=== PATIENT | male | born 1980 | race Caucasian/White ===

== ENCOUNTER 2016-09-28 09:18 | Inpatient (IN) | payer SELFPAY ==
[~2016-09-28] VITALS: Ht 182.9 cm; Wt 91.5 kg
[~2016-09-28 09:18] MED LIST: PRAVASTATIN SOD40 MG PO; ULTRAM50 MG PO; ZOFRAN ODT4 MG PO
[2016-09-28 10:29] LABS: EOSINOPHIL (%) 0.6 % (0-5); EOSINOPHIL COUNT 0.1 K/uL (0-0.3); IMMATURE GRANULOCYTE (%) 0.4 % (0.0-0.7); INSTRUMENT ABS NEUTROPHIL CT 5.3 K/uL; LYMPHOCYTE COUNT 2.3 K/uL (1.0-2.8); MCH 30.1 PG (29.0-34.0); MCHC 35.9 G/DL (30.0-36.0); MCV 83.8 FL (86-99); MEAN PLAT.VOLUME 10.1 uM^3 (9.0-12.4); MONOCYTE (%) 8.2 % (3-12); MONOCYTE COUNT 0.7 K/uL (0-0.8); NEUTROPHIL (%) 63.5 % (45-76); NEUTROPHIL COUNT 5.3 K/uL (1.8-6.4); PLATELET COUNT 261 K/uL (156-360); RBC DIS.WIDTH-CV 12.4 % (11.8-14.6); RBC DIS.WIDTH-SD 37.8 % (39-53); RED BLOOD COUNT 5.25 M/uL (4.00-5.50); WHITE BLOOD COUNT 8.4 K/uL (4.1-10.2)
[2016-09-28 10:35] LABS: CHLORIDE 107 mEq/L (99-109); POTASSIUM 4.2 mEq/L (3.7-5.4); SODIUM 141 mEq/L (136-147)
[2016-09-28 10:37] LABS: GLUCOSE 100 mg/dL (70-99)
[2016-09-28 10:39] LABS: ANION GAP 11 MEQ/L (2-14); TOTAL BILIRUBIN 0.7 mg/dL (0.0-1.0)
[2016-09-28 10:41] LABS: ALKALINE PHOSPHATASE 110 IU/L (3-129); GFR ESTIMATE (CALCULATED) > 59 mL/min/
[2016-09-28 10:42] LABS: UREA NITROGEN (BUN) 11 mg/dL (9-23)
[2016-09-28 10:44] LABS: LIPASE 998 U/L (1.0-51.0)
[2016-09-28] MEDS ORDERED: HYDROCODON-ACE1 EAC9 PO (11:29)
[2016-09-28] MEDS ORDERED: DAILY VALUE1 EACH PO (11:30)
[2016-09-28] MEDS ORDERED: TYLENOL EXTRA500 MG PO (11:30)
[2016-09-28 13:22] LABS: SAMPLE HEMOLYSIS CHECK 0; SAMPLE ICTERIC CHECK 0; SAMPLE LIPEMIA CHECK 0
[2016-09-28 13:39] VITALS: BP 137/87
[2016-09-28 13:40] LABS: Estimated Average Glucose 100 mg/dL (70-123); HEMOGLOBIN A1c (GLYCOHEMOGLOB) 5.1 % HGB (Below 5.7)
[2016-09-28 13:55] LABS: HDL CHOLESTEROL 44 MG/DL (Desirable>=40); LDL CHOLESTEROL 164 mg/dL (Desirable<100); NON-HDL CHOLESTEROL 235 mg/dL (Desirable<160); TOTAL CHOLESTEROL 279 mg/dL (Desirable<200); TRIGLYCERIDES 354 MG/DL (Normal: <150)
[2016-09-28 15:49] VITALS: BP 121/69
[2016-09-28 23:44] VITALS: BP 109/61
[2016-09-29 08:46] VITALS: BP 129/71
[2016-09-29 16:33] VITALS: BP 138/80
[2016-09-29 23:47] VITALS: BP 123/67
[2016-09-30 06:09] LABS: HEMATOCRIT 36.5 % (38.0-50.0); MCH 31.6 PG (29.0-34.0); MCHC 35.9 G/DL (30.0-36.0); MEAN PLAT.VOLUME 10.7 uM^3 (9.0-12.4); PLATELET COUNT 213 K/uL (156-360); RBC DIS.WIDTH-SD 41.8 % (39-53); WHITE BLOOD COUNT 6.1 K/uL (4.1-10.2)
[2016-09-30 06:11] LABS: MCV 88.2 FL (86-99); RED BLOOD COUNT 4.14 M/uL (4.00-5.50)
[2016-09-30 06:21] LABS: ANION GAP 6 MEQ/L (2-14); CHLORIDE 105 MEQ/L (99-109); GFR ESTIMATE (CALCULATED) > 59 mL/min/; GLUCOSE 94 mg/dL (70-99); LIPASE 279 U/L (1.0-51.0); POTASSIUM 3.9 MEQ/L (3.7-5.4); SAMPLE HEMOLYSIS CHECK 0; SAMPLE ICTERIC CHECK 0; SAMPLE LIPEMIA CHECK 0; SODIUM 141 MEQ/L (136-147); UREA NITROGEN (BUN) 7 mg/dL (9-23)
[2016-09-30 08:10] VITALS: BP 120/84
[2016-09-30 16:01] VITALS: BP 113/58; BP 130/74
[2016-09-30 23:18] VITALS: BP 121/59
[2016-10-01 08:28] VITALS: BP 137/76
== END 2016-10-01 16:50 | disposition home or self-care (01) | DRG 440 ==
LOC: EME 09:18 → EDOF 11:39 → 5SOUTH 11:39 → ENRESERV 11:40 → 5SOUTH 13:20
PROVIDERS: Emergency Medicine; Internal Medicine
DX: K85.00 Idiopathic acute pancreatitis without necrosis or infection (principal); K86.1 Other chronic pancreatitis; H66.90 Otitis media, unspecified, unspecified ear; Z83.3 Family history of diabetes mellitus; Z90.49 Acquired absence of other specified parts of digestive tract
CPT/HCPCS: 80048; 80053; 80061; 83036; 83690; 85025; 85027; 99281; 99285; J1170; J1650; J2405; J3010; J7030; J7042; S0028